=== PATIENT | male | born 1985 | race Hispanic/Latino ===

== ENCOUNTER 2023-06-15 01:24 | Emergency (ER) | payer SELFPAY ==
[2023-06-15] MEDS ORDERED: Tetracaine 0.5% PF 4 ML BOT ONE (01:55)
[2023-06-15] MEDS ORDERED: Boostrix 0.5 ML (Tdap) VIAL (>/=7 yrs of age) ONE (02:13)
[2023-06-15] MEDS ORDERED: Erythromycin Base 0.5% Ophth Oint 3.5 gm Tube ONE (02:15)
== END 2023-06-15 02:36 | disposition home or self-care (01) ==
LOC: MADERS 01:24
DX: S05.01XA Injury of conjunctiva and corneal abrasion without foreign body, right eye, initial encounter (principal); W50.0XXA Accidental hit or strike by another person, initial encounter; Z23 Encounter for immunization
CPT/HCPCS: 90471; 90715